=== PATIENT | male | born 1975 | race Two or more races ===

== ENCOUNTER 2024-03-08 21:37 | Emergency (ER) | payer MEDICAID, SELFPAY ==
[2024-03-08 21:39] VITALS: BMI 37.5
[2024-03-08 21:52] VITALS: BP 148/91; PULSE 98; RESP 18; TEMP 36.9; O2SAT 98
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
[2024-03-08] MEDS: HYDROcodone/APAP 5/325 TABLET 1 TAB PO (22:28)
== END 2024-03-09 01:05 | disposition home or self-care (01) ==
PROVIDERS: Emergency Provider Emergency Medicine; PCP Family Medicine
DX: S09.90XA Unspecified injury of head, initial encounter (principal); S19.9XXA Unspecified injury of neck, initial encounter; S29.9XXA Unspecified injury of thorax, initial encounter; S39.91XA Unspecified injury of abdomen, initial encounter; V89.2XXA Person injured in unspecified motor-vehicle accident, traffic, initial encounter
CPT/HCPCS: 70450; 71250; 72125; 74176; 99284; A9270

== ENCOUNTER 2024-08-23 18:19 | Emergency (ER) | payer MEDICAID, SELFPAY ==
[2024-08-23 18:21] VITALS: BMI 38.0
[2024-08-23 18:27] VITALS: BP 155/101; PULSE 109; RESP 18; TEMP 37.1; O2SAT 96
--- NOTE | 2024-08-23 18:31 | PD.EDRME ---
Rapid Medical Screening Exam RME Arrival date/time: 08/23/24 18:19 Chief Complaint: General Adult/Misc Complain Time Seen by Provider: 08/23/24 18:24 Vital signs: Vital Signs Temperature 98.7 F 08/23/24 18:27 Pulse Rate 109 H 08/23/24 18:27 Respiratory Rate 18 08/23/24 18:27 Blood Pressure 155/101 H 08/23/24 18:27 Pulse Oximetry (%) 96 08/23/24 18:27 Oxygen Delivery Method Room Air 08/23/24 18:27 Vital signs reviewed by provider: Yes RME Narrative: 49-year-old diabetic male presents to the ED with complaint of elevated blood sugar greater than 500, weakness, visual changes, urinary frequency, dry mouth. He has been taking his medications as prescribed. He believes the elevated blood sugar is related to him not currently working right now blood sugars usually run in the 100s. I have greeted and performed a focused initial assessment of this patient. A comprehensive ED assessment and evaluation of the patient, analysis of all test results, and completion of the medical decision making process will be conducted by additional ED providers.
--- NOTE | 2024-08-23 18:35 | EKG_ITS ---
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
--- NOTE | 2024-08-23 18:38 | XR_ITS ---
Examination: PA lateral chest 2 views TECHNIQUE: Upright PA and lateral chest 2 views Date and time:2024 1852 hours INDICATIONS: Chest pain today. FINDINGS: Normal heart size No lobar pneumonia or pulmonary edema The osseous structures are intact IMPRESSION: No lobar pneumonia or pulmonary edema
[2024-08-23 20:00] LABS: Base Excess 0 (-3-3); HCO3 25 mEq/L (20-26); O2 Saturation 96 % (91-98); PCO2 38 mmHg (32.0-48.0); PO2 85 mmHg (83-108); pH, Arterial 7.42 (7.35-7.45)
[2024-08-23 20:02] LABS: Inspired Oxygen, FIO2 98 %
[2024-08-23 20:03] LABS: Allen Test Performed/OK; Puncture Site Right Brachial
[2024-08-23 20:33] LABS: Lactate (Lactic Acid) 2.3 mMol/L (0.4-2.0)
[2024-08-23 20:34] LABS: Basophils # (Auto) 0.1 Thou/mm3 (0.0-0.2); Basophils % (Auto) 1 % (0-2.5); Eosinophils # (Auto) 0.1 Thou/mm3 (0.0-0.5); Eosinophils % (Auto) 2 % (0-10); Hemoglobin 15.9 g/dL (13.5-16.0); Immature Granulocytes % (Auto) 0 % (0-0); Immature Granulocytes Auto 0.02 Thou/mm3 (0.00-0.00); Lymphocytes # (Auto) 2.8 Thou/mm3 (1.0-4.8); Lymphocytes % (Auto) 47 % (10-50); Mean Corpuscular HGB Conc 36.1 g/dl (31.0-37.0); Mean Corpuscular Hemoglobin 29.7 pg (25.0-35.0); Mean Corpuscular Volume 82 fL (80-100); Monocytes # (Auto) 0.4 Thou/mm3 (0.0-0.8); Monocytes % (Auto) 7 % (0-12); Neutrophils # (Auto) 2.6 Thou/mm3 (1.8-7.7); Neutrophils % (Auto) 44 % (37-80); Nucleated Red Blood Cell % 0 /100 WBC (0); Platelet Count 252 Thou/mm3 (140-440); RDW Standard Deviation 38.5 fL (35.1-43.9); Red Blood Count 5.36 Miln/mm3 (4.50-5.90)
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
[2024-08-23 20:50] LABS: Beta Hydroxybutyrate 0.3 mmol/L (<0.6)
[2024-08-23 20:55] LABS: Glucose Estimated Average 252 mg/dL (80-131); Hemoglobin A1C 10.4 % Hgb (4.8-6.0)
[2024-08-23 21:12] LABS: Alanine Aminotransferase 61 U/L (10-49); Albumin, Serum 5.2 gm/dL (3.5-5.0); Albumin/Globulin Ratio 1.7 (1.2-2.2); Alkaline Phosphatase 79 U/L (46-116); Anion Gap 13 (7-16); Aspartate Amino Transferase 29 U/L (0-34); BUN/Creatinine Ratio 10 Ratio (12-20); Bilirubin,Total 0.5 mg/dL (0.3-1.2); Blood Urea Nitrogen 13 mg/dL (9-23); Carbon Dioxide 23.2 mMol/L (20.0-31.0); Chloride 93 mMol/L (98-107); Creatinine (Component) 1.3 mg/dL (0.6-1.3); Estimated Creatinine Clearance 85.8 mL/min (>60); Magnesium 2.1 mg/dL (1.6-2.6); Osmolality,Calculated 283 (275-295); Phosphorous 3.6 mg/dL (2.4-5.1); Potassium 4.3 mMol/L (3.4-5.1); Sodium 129 mMol/L (136-145); Total Protein 8.2 gm/dL (5.7-8.2); Troponin I < 0.020 ng/mL (0.0-0.045); eGFR > 60 See Note
[2024-08-23 21:15] LABS: Glucose 532 mg/dL (74-106)
[2024-08-23 21:23] LABS: Collection Type, Urine Clean Catch; Squamous Epithelial Cell,Urine 0 /hpf (0-5); WBC,Urine 0 /hpf (0-5)
[2024-08-23] MEDS: INSULIN HUM REGULAR 1 UNIT/0.01 ML (PER UNIT) 15 UNIT SC (21:27)
[2024-08-23 21:37] LABS: Bilirubin,Urine Negative (Negative); Blood,Urine Negative (Negative); Clarity,Urine Clear (Clear/Hazy); Color,Urine Lt-Yellow (Lt Yel-Yel); Glucose, Urine 4+ (Negative); Ketones,Urine 1+ (Negative); Leukocyte Esterase,Urine Negative (Negative); Nitrite,Urine Negative (Negative); Protein,Urine 1+ (Neg - Trace); RBC,Urine < 1 /hpf (0-3); Specific Gravity,Urine 1.046 (1.001-1.035); Urobilinogen,Urine Negative mg/dL (0.0-1.0)
[2024-08-23 21:40] VITALS: PULSE 85
[2024-08-23 22:00] VITALS: BP 132/93; PULSE 87; RESP 17; TEMP 36.6; O2SAT 95
[2024-08-23] MEDS: SODIUM CHLORIDE 0.9% 1000 ML 1,000 ML 999 ML IV ×2 (22:10→23:18)
[2024-08-23 23:30] LABS: Reflex Lactate? Y
[2024-08-23 23:52] LABS: Lactic Acid, 3 HR 1.6 mMol/L (0.4-2.0)
[2024-08-24] VITALS: BP 130/92; PULSE 84; RESP 18; TEMP 36.5; O2SAT 95
[2024-08-24] MEDS: INSULIN HUM REGULAR 1 UNIT/0.01 ML (PER UNIT) 5 UNIT IV (00:32)
[2024-08-24 01:42] VITALS: BP 136/80; PULSE 82; RESP 16; TEMP 36.6; O2SAT 95
[2024-08-24 02:34] LABS: Glucose 289 mg/dL (74-106)
== END 2024-08-24 02:35 | disposition home or self-care (01) ==
PROVIDERS: Physician Assistant; Emergency Provider Emergency Medicine; PCP Family Medicine
DX: E11.65 Type 2 diabetes mellitus with hyperglycemia (principal); R07.9 Chest pain, unspecified
CPT/HCPCS: 36415; 36600; 71046; 80053; 81001; 82010; 82803; 82947; 83036; 83605; 83735; 84100; 84484; 85025; 87040; 87086; 87400; 87811; 96360; 96361; 96372; 99284; J1815; J7030

== ENCOUNTER 2024-08-27 10:18 | Emergency (ER) | payer MEDICAID, SELFPAY ==
[2024-08-27 10:19] VITALS: BMI 38.0
[2024-08-27 10:33] VITALS: BP 139/96; PULSE 107; RESP 18; TEMP 36.8; O2SAT 98; BMI 32.6
--- NOTE | 2024-08-27 10:43 | PD.EDRME ---
Rapid Medical Screening Exam RME Arrival date/time: 08/27/24 10:18 49-year-old male with a history of type 2 diabetes presents to the emergency room with a chief complaint of elevated blood sugars. Patient states he checked his blood sugar this morning and it read over 400. I have greeted and performed a focused initial assessment of this patient. A comprehensive ED assessment and evaluation of the patient, analysis of all test results, and completion of the medical decision making process will be conducted by additional ED providers. Chief Complaint: General Adult/Misc Complain Time Seen by Provider: 08/27/24 10:36 Vital signs: Vital Signs Temperature 98.3 F 08/27/24 10:33 Pulse Rate 107 H 08/27/24 10:33 Respiratory Rate 18 08/27/24 10:33 Blood Pressure 139/96 H 08/27/24 10:33 Pulse Oximetry (%) 98 08/27/24 10:33 Oxygen Delivery Method Room Air 08/27/24 10:33 Vital signs reviewed by provider: Yes
[2024-08-27 11:09] LABS: Basophils % (Auto) 1 % (0-2.5); Eosinophils # (Auto) 0.1 Thou/mm3 (0.0-0.5); Eosinophils % (Auto) 1 % (0-10); Hematocrit 44.1 % (41.0-53.0); Hemoglobin 15.9 g/dL (13.5-16.0); Immature Granulocytes % (Auto) 1 % (0-0); Immature Granulocytes Auto 0.03 Thou/mm3 (0.00-0.00); Lymphocytes # (Auto) 1.8 Thou/mm3 (1.0-4.8); Lymphocytes % (Auto) 35 % (10-50); Mean Corpuscular HGB Conc 36.1 g/dl (31.0-37.0); Mean Corpuscular Hemoglobin 29.1 pg (25.0-35.0); Mean Corpuscular Volume 81 fL (80-100); Monocytes # (Auto) 0.3 Thou/mm3 (0.0-0.8); Monocytes % (Auto) 6 % (0-12); Neutrophils # (Auto) 2.9 Thou/mm3 (1.8-7.7); Neutrophils % (Auto) 57 % (37-80); Nucleated Red Blood Cell % 0 /100 WBC (0); Platelet Count 278 Thou/mm3 (140-440); RDW Standard Deviation 37.5 fL (35.1-43.9); Red Blood Count 5.46 Miln/mm3 (4.50-5.90); White Blood Count 5.2 Thou/mm3 (3.8-10.6)
[2024-08-27 11:10] LABS: Beta Hydroxybutyrate 0.6 mmol/L (<0.6)
[2024-08-27 11:17] LABS: Collection Type, Urine Clean Catch; Squamous Epithelial Cell,Urine 0 /hpf (0-5)
[2024-08-27 11:26] LABS: Bilirubin,Urine Negative (Negative); Blood,Urine Negative (Negative); Clarity,Urine Clear (Clear/Hazy); Color,Urine Lt-Yellow (Lt Yel-Yel); Glucose, Urine 4+ (Negative); Ketones,Urine 2+ (Negative); Leukocyte Esterase,Urine Negative (Negative); Nitrite,Urine Negative (Negative); Protein,Urine 1+ (Neg - Trace); RBC,Urine 2 /hpf (0-3); Specific Gravity,Urine 1.048 (1.001-1.035); Urobilinogen,Urine Negative mg/dL (0.0-1.0); WBC,Urine 1 /hpf (0-5)
[2024-08-27 11:31] LABS: Alanine Aminotransferase 65 U/L (10-49); Albumin, Serum 5.3 gm/dL (3.5-5.0); Albumin/Globulin Ratio 1.6 (1.2-2.2); Alkaline Phosphatase 78 U/L (46-116); Anion Gap 10 (7-16); Aspartate Amino Transferase 41 U/L (0-34); BUN/Creatinine Ratio 11 Ratio (12-20); Bilirubin,Total 0.9 mg/dL (0.3-1.2); Blood Urea Nitrogen 13 mg/dL (9-23); Calcium 11.2 mg/dL (8.3-10.6); Calcium (Corrected) 11.2 mg/dL (8.5-10.1); Carbon Dioxide 24.6 mMol/L (20.0-31.0); Chloride 94 mMol/L (98-107); Creatinine (Component) 1.2 mg/dL (0.6-1.3); Estimated Creatinine Clearance 86.2 mL/min (>60); Globulin 3.3 gm/dL (2.3-3.5); Glucose 482 mg/dL (74-106); Lipase 98 U/L (12-53); Osmolality,Calculated 280 (275-295); Potassium 4.6 mMol/L (3.4-5.1); Sodium 129 mMol/L (136-145); Total Protein 8.6 gm/dL (5.7-8.2); eGFR > 60 See Note
[2024-08-27 14:03] VITALS: BP 137/91; PULSE 80; RESP 18; TEMP 36.7; O2SAT 99
[2024-08-27] MEDS: SODIUM CHLORIDE 0.9% 1000 ML 1,000 ML 999 ML IV ×2 (14:20)
[2024-08-27 15:53] VITALS: BP 141/93; PULSE 78; RESP 17; TEMP 36.6; O2SAT 97
[2024-08-27] MEDS: INSULIN HUM REGULAR 1 UNIT/0.01 ML (PER UNIT) 5 UNIT IV (15:59)
--- NOTE | 2024-08-27 16:43 | EDNOTE_ITS ---
ED General RME/HPI General Chief complaint: General Adult/Misc Complain Stated complaint: BLOOD SUGAR JEMMA 465 Time Seen by Provider: 08/27/24 10:36 Arrival date/time: 08/27/24 10:18 RME / HPI RME / HPI narrative: 08/27/24 10:18 49-year-old male with a history of type 2 diabetes presents to the emergency room with a chief complaint of elevated blood sugars. Patient states he checked his blood sugar this morning and it read over 400. I have greeted and performed a focused initial assessment of this patient. A comprehensive ED assessment and evaluation of the patient, analysis of all test results, and completion of the medical decision making process will be conducted by additional ED providers. DR. DUONG MAIN ED EVALUATION 49 year old male with history of diabetes presents to the ED for evaluation of elevated blood sugars today. Patient reports blood sugar today ready over 400 at home. States he was just evaluated here 3 days ago for elevated blood sugar and discharged home with a prescription for Janumet. Patient mentioned in the last month has had increased stress and is less active at home though reports no changes in diet. No other associated symptoms or complaints reported. Denies taking any other medications apart from Janument. Related Data Home Medications ?Medication ?Instructions ?Recorded ?Confirmed atorvastatin 20 mg tablet mg 08/27/24 Previous Rx's ?Medication ?Instructions ?Recorded sitagliptin phosphate 50 1 tab PO BID #60 tabs mg-metformin 1,000 mg tablet (Janumet) Allergies Allergy/AdvReac Type Severity Reaction Status Date / Time No Known Allergies Allergy Verified 08/27/24 10:20 Review of Systems Review of Systems Narrative Review of Systems: GEN: No fever, no chills, no weight loss EYES: No discharge, no visual changes, no pain HEENT: No ear pain, no congestion, no sore throat PULM: No shortness of breath, no cough, no congestion CV: No chest pain, no dyspnea on exertion, no palpitations GI: No nausea, no vomiting, no diarrhea, no pain, no constipation : No frequency, no urgency, no dysuria MUSC/SKEL: No joint pain, no back pain SKIN: No rash NEURO: No weakness, no headache Past Medical History Past Medical History NEUROLOGIC: Negative Neurological Disorders CARDIAC: Positive Cardiac Disorders and Hypercholesterolemia; Negative Congestive Heart Failure RESPIRATORY: Negative Chronic Obstructive Pulmonary Disease (COPD) GENITOURINARY: Negative Genitourinary Disorders or Renal Disease MUSCULOSKELETAL: Negative Musculoskeletal Disorders ENDOCRINE: Positive Endocrine Disorders and Diabetes Mellitus Type 2; Negative Diabetes Mellitus Type 1 Social History SMOKING STATUS: Never smoker ED Exam Narrative Physical exam: GENERAL APPEARANCE: alert and oriented x 4, well-developed, well-nourished, no acute distress HEENT: Normocephalic, atraumatic; pupils equal, round, reactive to light; EOMI; mucous membranes pink, moist; oropharynx clear NECK: Supple LUNGS: CTABL; no wheezes, no rales, no rhonchi HEART: Regular rate, regular rhythm; normal S1, S2; no murmurs ABDOMEN: non distended; normal BS; soft, no tenderness, no guarding, no rebound; no masses, no organomegaly, no hernia BACK: no CVA tenderness EXTREMITIES: atraumatic; no edema NEUROLOGIC: awake; alert and oriented x4; cranial nerves II-XII grossly intact; no focal sensory or motor deficits PSYCHIATRIC: appropriate mood and affect SKIN: warm, dry, normal color; no rashes Course Quality Measures none Orders Category Date Time Status Bedside Blood Glucose Q1HR Care 08/27/24 14:10 Completed Beta Hydroxybutyrate Stat Lab 08/27/24 10:57 Completed CBC Stat Lab 08/27/24 10:57 Completed CMP [Comprehensive Metabolic Panel] Stat Lab 08/27/24 10:57 Completed Lipase Stat Lab 08/27/24 10:57 Completed UA [Urinalysis] Stat Lab 08/27/24 11:12 Completed Urine Culture Stat Lab 08/27/24 11:12 Received Insulin Regular Med 08/27/24 15:53 Discontinued 5 unit IV X1 ONE Sodium Chloride 0.9% 1000 ml [Ns] 1,000 ml Med 08/27/24 13:58 Discontinued IV 999 mls/hr Sodium Chloride 0.9% 1000 ml [Ns] 1,000 ml Med 08/27/24 13:58 Discontinued IV 999 mls/hr Vital Signs Vital signs: Vital Signs Temperature 98.3 F 08/27/24 10:33 Pulse Rate 107 H 08/27/24 10:33 Respiratory Rate 18 08/27/24 10:33 Blood Pressure 139/96 H 08/27/24 10:33 Pulse Oximetry (%) 98 08/27/24 10:33 Oxygen Delivery Method Room Air 08/27/24 10:33 Pulse ox is 98% on room air which is adequate. Discharge Plan Plan Patient Disposition: HOME (Self Care) Prescriptions/Referrals Prescriptions/Med Rec: No Action Janumet 50-1,000 mg tablet 1 tab PO BID Qty: 60 0RF atorvastatin 20 mg tablet Referrals: Mainor Esqueda PA-C [Primary Care Provider] - In 1 week Problem List Clinical Impression: Hyperglycemia Patient/Caregiver Discharge Instructions Education Materials: ED Diabetes with High Blood Sugar Additional Instructions: Continue Janumet as prescribed. Follow up with your doctor for diabetes management. Print Language: Frisian Stand Alone Forms: Jenny Award Info., Patient Portal Info Letter MDM Narrative [facility] hospital course: IHarleen am scribing for and in the presence of Dr. Duong. Clinical Information Provided by patient Medical Records Reviewed [facility] I reviewed ED visit on 08/23/2024 Meds/Rx Considered, not Ordered None Labs/Rad/Tests considered, not Ordered None Chronic Illness/Social Conditions which may negatively complicate care or outcome(s)-explain: None or not applicable EKG EKG not done Lab Interpretation Labs: interpreted by in Lab(s) interpretation(s): CBC unremarkable Patient is hyperglycemic that improved after IV fluids Imaging Imaging interpretation: none Medication Administration(s) Medication Administration History Discontinued Medications Sodium Chloride (Ns) 1,000 mls @ 999 mls/hr IV .Q1H1M ONE Stop: 08/27/24 14:58 Last Infusion: 08/27/24 15:21 Dose: Infused Documented By: Admin: 08/27/24 14:20 Dose: 999 mls/hr Documented By: EF Sodium Chloride (Ns) 1,000 mls @ 999 mls/hr IV .Q1H1M ONE Stop: 08/27/24 14:58 Last Infusion: 08/27/24 15:21 Dose: Infused Documented By: Admin: 08/27/24 14:20 Dose: 999 mls/hr Documented By: EF Insulin Human Regular (Insulin Hum Regular 1 Unit/0.01 Ml (Per Unit)) 5 unit IV X1 ONE Stop: 08/27/24 15:54 Last Admin: 08/27/24 15:59 Dose: 5 unit Documented By: Co-signed By: EF See above Diagnosis Most likely dx, and/or detailed dx discussion: Hyperglycemia Dispositon Disposition: Discharge Home
== END 2024-08-27 16:45 | disposition home or self-care (01) ==
PROVIDERS: Nurse Practitioner Family; Emergency Provider Emergency Medicine; PCP Family Medicine
DX: E11.65 Type 2 diabetes mellitus with hyperglycemia (principal)
CPT/HCPCS: 36415; 80053; 81001; 82010; 83690; 85025; 87086; 96360; 99284; J1815; J7030